=== PATIENT | female | born 1945 | race Caucasian/White ===

== ENCOUNTER 2023-10-21 07:07 | Emergency (ER) | payer BC ==
[~2023-10-21] VITALS: Ht 167.6 cm; Wt 69.4 kg
[2023-10-21 07:46] LABS: BASO % 0.3 % (0.0-1.0); EOS % 0.4 % (1.0-4.0); HEMATOCRIT 38.5 % (37.0-47.0); LYMPH # 1.1 10*3/uL (1.3-4.4); LYMPH % 11.5 % (27.0-41.0); MEAN CELL VOLUME 91.9 fl (81.0-99.0); MEAN CORPUSCULAR HGB 30.1 pg (27.0-31.0); MEAN CORPUSCULAR HGB CONC 32.7 g/dl (33.0-37.0); MEAN PLATELET VOLUME 8.9 fl (9.6-12.3); MONO # 0.7 10*3/uL (0.1-1.0); MONO % 7.2 % (3.0-9.0); NEUT # 7.4 10*3/uL (2.3-7.9); NEUT % 80.4 % (47.0-73.0); PLATELET COUNT AUTOMATED 287 10*3/uL (130-400); RED BLOOD COUNT 4.19 10*6/uL (4.10-5.10); RED CELL DISTRI WIDTH 12.7 % (0-14.5); WHITE BLOOD COUNT 9.2 10*3/uL (4.8-10.8)
[2023-10-21] MEDS ORDERED: Ondansetron Hydrochloride 4 MG/2 ML VIAL IV ONE (07:50)
[2023-10-21 07:57] LABS: ACT PARTIAL THROMBO TIME 40.7 SECONDS (20.0-32.1)
[2023-10-21 08:08] LABS: ALKALINE PHOSPHATASE 114 U/L (46-116); BUN 17 mg/dl (9-23); CHLORIDE 109 mmol/L (98-107); POTASSIUM 3.6 mmol/L (3.4-5.1); SGPT/ALT 17 U/L (5-49); TOTAL PROTEIN 6.9 gm/dL (6.0-8.0)
[2023-10-21] MEDS ORDERED: SODIUM CHLORIDE 0.9% 500 ML IV ONE (09:55)
[2023-10-21] MEDS ORDERED: METRONIDAZOLE 100 ML IV ONE (11:10)
[2023-10-21] MEDS ORDERED: Ciprofloxacin Hydrochloride 500 MG TAB PO ONE (11:10)
[2023-10-21 11:30] LABS: ABG BASE EXCESS -4.4 mmol/L (-2.0-2.0); ARTERIAL BLOOD GAS PH 7.513 (7.35-7.45)
[2023-10-21] MEDS ORDERED: Metoclopramide Hydrochloride 10 MG/2 ML AMP IV ONE (12:05)
[2023-10-21] MEDS ORDERED: CIPRO500 MG PO (12:27)
[2023-10-21] MEDS ORDERED: FLAGYL 375375 MG PO (12:27)
[2023-10-21] MEDS ORDERED: DICYCLOMINE HYD20 MG PO (12:28)
[2023-10-21] MEDS ORDERED: REGLAN10 M1 PO (12:31)
[2023-10-21] MEDS ORDERED: METRONIDAZOLE500 M1 PO (12:38)
== END 2023-10-21 12:51 | disposition home or self-care (01) ==
LOC: ED 07:07
PROVIDERS: Emergency Medicine; Internal Medicine
DX: K52.9 Noninfective gastroenteritis and colitis, unspecified (principal); Z20.822 Contact with and (suspected) exposure to COVID-19; A08.8 Other specified intestinal infections